=== PATIENT | male | born 1970 | race African-American/Black ===

== ENCOUNTER 2025-02-02 13:59 | Emergency (ER) | payer MEDICAID ==
[~2025-02-02] VITALS: Ht 177.8 cm; Wt 91.0 kg
[2025-02-02 14:09] VITALS: TEMP 36.5; O2SAT 100
[2025-02-02] MEDS: MORPHINE SULFATE 4 MG/ML INJ (FOR IV/IM USE) IM ONE (16:03)
[2025-02-02] MEDS: BACITRACIN ZINC OINT UDPKT TOP ONE (17:30)
[2025-02-02] MEDS: LIDOCAINE HCL 1% 20ML VIAL MC ONE (17:30)
[2025-02-02] MEDS ORDERED: CEFAZOLIN 1000MG PREMIX 50 ML IV ONE (18:00)
[2025-02-02] MEDS: CEFAZOLIN SODIUM 1000MG/VIAL IM ONE (18:48)
[2025-02-02] MEDS: HYDROCODONE/ACETAMINOPHEN 10/325MG TABLET PO ONE (20:10)
[2025-02-02] MEDS ORDERED: HYDR-4009 MT (22:09)
[2025-02-02] MEDS ORDERED: IBUP-2030 MT (22:09)
[2025-02-02] MEDS ORDERED: BO1 TP (22:09)
[2025-02-02] MEDS ORDERED: CEPH500T MT (22:09)
[2025-02-02 22:41] VITALS: BP 136/88; PULSE 70; RESP 18; O2SAT 99
== END 2025-02-02 22:45 | disposition home or self-care (01) ==
LOC: ER 13:59
DX: S62.635A Displaced fracture of distal phalanx of left ring finger, initial encounter for closed fracture (principal); S62.631A Displaced fracture of distal phalanx of left index finger, initial encounter for closed fracture; W23.0XXA Caught, crushed, jammed, or pinched between moving objects, initial encounter; Y93.89 Activity, other specified; Y92.89 Other specified places as the place of occurrence of the external cause; Y99.8 Other external cause status
CPT/HCPCS: 73130; 12002; 96372; 99284; J0690; J2003; J2270; Z7610 ×3